=== PATIENT | male | born 1985 | race Caucasian/White ===

== ENCOUNTER 2023-12-30 07:45 | Outpatient (CLI) | payer OTHER ==
--- NOTE | 2023-12-30 13:14 | MRI Report ---
PROCEDURE: Ankle RT WO INDICATIONS: R ANKLE PAIN TECHNIQUE: Noncontrast sagittal T1 spin echo and T2 fast spin echo with fat saturation, axial proton density fas t spin echo and T2 fast spin echo with fat saturation, coronal T1 spin echo and T2 fast spin echo wit h fat saturation through the ankle/hindfoot. COMPARISON: Outside MRI of right ankle dated 09/01/2019. FINDINGS: Image quality: Excellent. Bones and joints: No bone marrow contusions or fractures. No hindfoot coalitions. No osteochondral injuries of the talar dome. No pathologic joint effusions. Medial structures: The posterior tibialis tendon is mildly thickened near its distal insertion. The flexor digitorum longus, and flexor hallucis longus tendons are intact. The posterior tibial neurova scular bundle appears normal within the tarsal tunnel, without extrinsic mass effect. The deltoid li gament is intact. Thickened spring ligament near its lateral insertion is seen with intrasubstance T2 hyperintense signal. Lateral structures: The anterior talofibular ligament is thickened with intrasubstance T2 hyperinten se signal. The calcaneofibular, and posterior talofibular ligaments appear mildly thickened. More tanner periorly, the anterior tibiofibular ligament is also thickened with intrasubstance T2 hyperintense si gnal. The posterior tibiofibular ligament appears normal, as is the intermalleolar ligament. The tib iofibular syndesmosis is normal in width at 2 mm or less. The peroneus longus tendon is thickened at the level of distal calcaneus extending to its distal insertion. The brevis tendon is intact. Adjace nt bony peroneal tubercle and retrotrochlear prominence are normal in size. The sinus tarsi demonstr ates normal fatty signal, without edema, fibrosis, or cyst formation. Visualized sinus tarsi compone nts (cervical ligament, interosseous talocalcaneal ligament, roots of the inferior extensor retinacul um) appear normal. Anterior structures: The tibialis anterior, extensor hallucis longus, and extensor digitorum longus tendons appear intact. Posterior and plantar structures: Achilles tendon is intact. Medial and lateral bands of the planta r fascia are of normal thickness. No abductor digiti quinti muscle atrophy to suggest Gaviria neuropa thy. IMPRESSION: 1. No marrow edema. No fracture or dislocation. No osteochondral injuries of talar dome. 2. Mild tendinosis involving posterior tibialis tendon near its distal insertion. 3. Tendinosis involving peroneus longus tendon at the level of distal calcaneus extending to its dist al insertion. 4. Low-grade sprain/partial thickness tear involving spring ligament. 5. Low to moderate grade sprain/intrasubstance partial thickness tear involving lateral ankle ligamen ts as above. No full-thickness ankle ligament rupture. Reviewed by: Lester Aviles MD on 12/30/2023 1:13 PM PDT Approved by: Lester Aviles MD on 12/30/2023 1:13 PM PDT Station ID: [id number]
== END 2023-12-30 07:46 | disposition home or self-care (01) ==
LOC: DI 07:45
PROVIDERS: ATTEND Podiatrist
DX: M67.971 Unspecified disorder of synovium and tendon, right ankle and foot (principal); S96.811A Strain of other specified muscles and tendons at ankle and foot level, right foot, initial encounter

== ENCOUNTER 2024-06-03 09:32 | Outpatient (CLI) | payer OTHER ==
--- NOTE | 2024-06-05 15:09 | MRI Report ---
PROCEDURE: Foot RT WO INDICATIONS: SYNOVITIS/TENOSYNOVITES TECHNIQUE: Noncontrast sagittal T1 spin echo and T2 fast spin echo with fat saturation, long-axis T1 spin echo a nd T2 fast spin echo with fat saturation, short-axis proton density fast spin echo and T2 fast spin e cho with fat saturation through the forefoot. COMPARISON: MRI of right ankle dated 09/01/2019 and 12/30/2023. FINDINGS: Image quality: Excellent. Bones and joints: No bone marrow contusions or metatarsal stress fractures. The sesamoid bones appe ar in expected positions, without internal edema. Very mild first MTP joint osteoarthritis is seen wi th joint space narrowing and subchondral sclerosis. No intraosseous lesions. Soft tissues: The visualized plantar foot muscles demonstrate normal signal and bulk. Visualized fl exor and extensor tendons appear intact, without tenosynovitis. Thickened distal peroneus brevis long us tendon along plantar aspect of mid foot extending to its first metatarsal base insertion is seen. No soft tissue ganglion cysts or bursal fluid collections. Sagittal images demonstrate no evidence f or plantar plate tears. IMPRESSION: 1. Very mild first MTP joint osteoarthritis. No marrow edema. No fracture or dislocation. No metatars al stress fractures. 2. Extensor and flexor tendons of midfoot and forefoot are grossly intact without evidence of tendino sis and tenosynovitis. Lisfranc ligament is intact. 3. Tendinosis involving distal insertion of peroneus longus tendon. Reviewed by: Lester Aviles MD on 06/05/2024 3:08 PM PDT Approved by: Lester Aviles MD on 06/05/2024 3:08 PM PDT Station ID: [id number]
--- NOTE | 2024-06-05 15:27 | MRI Report ---
PROCEDURE: Ankle RT WO INDICATIONS: SYNOVITIS/TENOSYNOVITES TECHNIQUE: Noncontrast sagittal T1 spin echo and T2 fast spin echo with fat saturation, axial proton density fas t spin echo and T2 fast spin echo with fat saturation, coronal T1 spin echo and T2 fast spin echo wit h fat saturation through the ankle/hindfoot. COMPARISON: MRI of ankle dated 12/30/2023 and 09/01/2019. FINDINGS: Image quality: Excellent. Bones and joints: No bone marrow contusions or fractures. No hindfoot coalitions. No osteochondral injuries of the talar dome. Small amount of tibiotalar and subtalar joint effusion is seen, no loose bodies. Medial structures: Again noted is mildly thickened the distal posterior tibialis tendon at its distal insertion with stress amount of fluid distending tendon sheath. The flexor digitorum longus, and fle xor hallucis longus tendons are intact. The posterior tibial neurovascular bundle appears normal wit hin the tarsal tunnel, without extrinsic mass effect. The deltoid ligament and spring ligament are g rossly intact on the current study. Lateral structures: The anterior talofibular, calcaneofibular, and posterior talofibular ligaments a ppear intact. More superiorly, the anterior and posterior tibiofibular ligaments appear normal, as i s the intermalleolar ligament. The tibiofibular syndesmosis is normal in width at 2 mm or less. The peroneus longus and brevis tendons are thickened at the level of mid to lateral malleolus tip and ex tending to their distal insertions. The sinus tarsi demonstrates normal fatty signal, without edema, fibrosis, or cyst formation. Visualized sinus tarsi components (cervical ligament, interosseous talo calcaneal ligament, roots of the inferior extensor retinaculum) appear normal. Anterior structures: The tibialis anterior tendon is mildly thickened along anterior aspect of dista l tibia and tibiotalar joint extending to its distal insertion. Extensor hallucis longus, and extenso r digitorum longus tendons appear intact. Posterior and plantar structures: Achilles tendon is intact. Medial and lateral bands of the planta r fascia are of normal thickness. No abductor digiti quinti muscle atrophy to suggest Gaviria neuropa thy. IMPRESSION: 1. No marrow edema. No fracture or dislocation. No osteochondral injuries of talar dome. Small amount of joint effusion, no loose bodies. 2. Mild tenosynovitis involving distal posterior tibialis tendon near its distal insertion. 3. Tendinosis involving peroneus longus and brevis tendons at the level of lateral malleolus tip exte nding to their distal insertions. 4. Mild tendinosis involving tibialis anterior tendon at the level of tibiotalar joint extending to i ts distal insertion. 5. Medial and lateral ankle ligaments are grossly intact on the current study. Reviewed by: Lester Mccullough MD on 06/05/2024 3:26 PM PDT Approved by: Lester Mccullough MD on 06/05/2024 3:26 PM PDT Station ID: [id number]
== END 2024-06-03 09:33 | disposition home or self-care (01) ==
LOC: DI 09:32
PROVIDERS: ATTEND General Practice
DX: M19.071 Primary osteoarthritis, right ankle and foot (principal); M67.971 Unspecified disorder of synovium and tendon, right ankle and foot; M25.471 Effusion, right ankle